=== PATIENT | male | born 1950 | race Caucasian/White ===

== ENCOUNTER 2016-06-25 11:30 | Observation (INO) | payer SELFPAY ==
[2016-06-25 12:06] LABS: Hematocrit 44 % (42-52); Hemoglobin 14.5 g/dl (14.0-18.0); Mean Corpuscular HGB Conc 33 g/dl (31-36); Mean Corpuscular Hemoglobin 29 pg (27-31); Mean Corpuscular Volume 88 fL (80-94); Mean Platelet Volume 8 um3 (7.4-10.4); Red Blood Count 4.95 10^6/ul (4.0-5.4); Red Cell Distribution Width 13 % (10.5-15)
--- NOTE | 2016-06-25 12:19 | RAD ---
Indication: Neurologic changes, dizziness with difficulty speaking. CT of the brain was performed without IV contrast. No prior study is available for comparison. Ventricular structures are midline. No midline shift is noted. The extra-axial spaces are unremarkable. There is no evidence of intracranial mass or hemorrhage. No other high or low density lesions are identified. Mastoid air cells and paranasal sinuses are otherwise unremarkable. IMPRESSION: No definite intracranial mass or hemorrhage is noted. Findings were called to the ER at 12:15 PM.
[2016-06-25 12:22] LABS: ALT 17 U/L (7-52); AST 14 U/L (13-39); Albumin 4.5 g/dL (3.2-5.2); Alkaline Phosphatase 54 U/L (34-104); Anion Gap 8 mmol/L (2-11); BUN/Creatinine Ratio 14.7 (8-20); Blood Urea Nitrogen 22 mg/dL (6-24); CO2 Carbon Dioxide 26 mmol/L (22-32); Calcium 9.4 mg/dL (8.6-10.3); Chloride 102 mmol/L (101-111); Cholesterol 160 mg/dL; EGFR African American 60.8 (>60); EGFR Non-African American 47.3 (>60); Globulin 2.7 g/dL (2-4); Glucose 112 mg/dL (70-100); HDL Cholesterol 37.3 mg/dL; LDL Cholesterol 100 mg/dL; Sodium 136 mmol/L (133-145); Total Protein 7.2 g/dL (6.4-8.9); Triglycerides 115 mg/dL
[2016-06-25] MEDS ORDERED: Iodixanol* (CONTRAST) 320 MG/ML 100 ML SDV IV ONE (12:27)
--- NOTE | 2016-06-25 12:32 | RAD ---
INDICATION: Aphasia COMPARISON: Chest x-ray October 03, 2003 TECHNIQUE: An AP portable view obtained at 1203 hours is submitted. FINDINGS: Bones/Soft Tissues: There are no acute bony findings. Cardiomediastinal: The cardiomediastinal silhouette is normal. Lungs: There are no infiltrates. Pleura: There are no pleural effusions. Other: None IMPRESSION: NO ACTIVE DISEASE.
[2016-06-25] MEDS ORDERED: Aspirin TAB* 325 MG PO ONE (13:32)
--- NOTE | 2016-06-25 13:41 | RAD ---
INDICATION: Aphasia COMPARISON: Noncontrast CT brain same date TECHNIQUE: Axial source images were acquired with coronal and sagittal reconstructions. CT angiographic technique was utilized with injection of 80 mL Visipaque 320. FINDINGS: Aortic arch: There are no CT angiogram abnormalities of the arch or the great vessels arising from the arch. Right carotid: The internal carotid artery, carotid bifurcation, extracranial portions of the internal carotid artery, carotid artery at the skull base, carotid siphon, and carotid termination appear normal. Left carotid:The internal carotid artery, carotid bifurcation, extracranial portions of the internal carotid artery, carotid artery at the skull base, carotid siphon, and carotid termination appear normal. Right middle and anterior cerebral arteries: There are no CT angiographic abnormalities of the middle or anterior cerebral arteries. Left middle and anterior cerebral arteries: There are no CT angiographic abnormalities of the middle or anterior cerebral arteries Right vertebral: The CT angiographic appearance of the vertebral artery is normal. Left vertebral: The CT angiographic appearance of the vertebral artery is widely patent. There is no anatomic variant with the vertebral artery originating from the aortic arch. Basilar artery: The basilar artery and basilar tip appear normal. Posterior cerebral arteries: The distal distribution of the right and left posterior cerebral arteries is normal. [place] of [place]: The [place] is intact. There are variants. The posterior cerebral arteries are hypoplastic. The right A1 segment is hypoplastic. The distal distribution of the right anterior cerebral artery is supplied by the left middle cerebral artery. Source images show no evidence of mass or adenopathy within the neck. There are no focal parenchymal abnormalities or abnormal areas of enhancement. IMPRESSION: NO ACUTE CT ANGIOGRAPHIC ABNORMALITIES.. NO ANEURYSM, STENOSIS, BRANCH OCCLUSIVE DISEASE. SUGGEST MR IMAGING. CPT II Codes: 3100F PQRS
[2016-06-25] MEDS ORDERED: hydrALAZINE IV* 20 MG/ML VIAL IV SLOW PU PRN (13:42)
[2016-06-25] MEDS ORDERED: Acetaminophen TAB* 325 MG PO PRN (13:42)
[2016-06-25] MEDS ORDERED: Ondansetron INJ* 2 MG/ML VIAL IV PRN (13:42)
[2016-06-25] MEDS ORDERED: NS 0.9% 1000 ML* 1,000 ML IV SCH (13:45)
--- NOTE | 2016-06-25 15:56 | ED ---
Jerad, DoctorStephanie, scribed for Darwin Ortiz MD on 06/25/16 at 1206 . Neurological HPI - HPI Summary HPI Summary: 65 year old male arrived to [facility] c/o changes to his speech at 11:00 this morning, as well as ongoing dizziness and weakness for the past few weeks. His dizziness/weakness was exacerbated this morning at 09:00; he describes feeling "off-balance and slightly removed," as well as being unable to "find the right words." His symptoms have now resolved spontaneously. He denies any facial changes, unilateral weakness, or difficulty understanding others. He has a PMHx of Gout (for which he takes Indomethacin); he regularly sees Dr. Kidd (PCP) - History of Current Complaint Chief Complaint: EDNeurologicalDeficit Stated Complaint: TROUBLE SPEAKING Time Seen by Provider: 06/25/16 11:40 Hx Obtained From: Patient Onset/Duration: Gradual Onset Timing: Constant Onset Severity: Moderate Current Severity: Moderate Pain Intensity: 3 Pain Scale Used: 0-10 Numeric Character: Dizzy Alleviating: Spontanious Resolution Associated Signs and Symptoms: Positive: Dizziness, Impaired Speech - Allergy/Home Medications Allergies/Adverse Reactions: Allergies Allergy/AdvReac Type Severity Reaction Status Date / Time No Known Allergies Allergy Verified 02/10/15 10:41 Home Medications: Home Medications Indomethacin CAP* [Indocin CAP*] 25 mg PO TID PRN 06/25/16 [History Confirmed ] Omeprazole [Omeprazole 40 MG] 40 mg PO DAILY 06/25/16 [History Confirmed ] Simvastatin [Simvastatin] 40 mg PO DAILY 06/25/16 [History Confirmed 06/25/16] Tadalafil [Cialis] 5 mg PO DAILY 06/25/16 [History Confirmed 06/25/16] PMH/Surg Hx/FS Hx/Imm Hx Endocrine/Hematology History: Denies: Hx Diabetes, Hx Thyroid Disease Cardiovascular History: Denies: Hx Hypertension, Hx Pacemaker/ICD Respiratory History: Denies: Hx Asthma, Hx Chronic Obstructive Pulmonary Disease (COPD) GI History: Denies: Hx Ulcer History: Denies: Hx Renal Disease - POSSIBLE STAGE 2 KIDNEY DISEASE Sensory History: Denies: Hx Hearing Aid Psychiatric History: Denies: Hx Panic Disorder - Surgical History Surgery Procedure, Year, and Place: Rt leg reconstruction;Lt ACL repair Infectious Disease History: No Infectious Disease History: Denies: Hx Clostridium Difficile, Hx Hepatitis, Hx Human Immunodeficiency Virus (HIV), History Other Infectious Disease, Traveled Outside the [place] in Last 30 Days - Family History Known Family History: Positive: Renal Disease - Social History Alcohol Use: Occasionally Substance Use Type: Reports: None Smoking Status (MU): Former Smoker Type: Cigars Review of Systems Negative: Fever Neurological: Other - "words weren't making sense," "difficulty coming up with the right words" All Other Systems Reviewed And Are Negative: Yes Physical Exam Triage Information Reviewed: Yes Vital Signs On Initial Exam: Initial Vitals Temp Pulse Resp BP Pulse Ox 98.2 F 70 18 171/112 100 06/25/16 11:32 06/25/16 11:32 06/25/16 11:32 06/25/16 11:32 06/25/16 11:32 Vital Signs Reviewed: Yes Appearance: Positive: Well-Appearing, No Pain Distress Skin: Positive: Warm, Skin Color Reflects Adequate Perfusion, Dry Head/Face: Positive: Normal Head/Face Inspection Eyes: Positive: Normal ENT: Positive: Normal ENT inspection Neck: Positive: Supple, Nontender Respiratory/Lung Sounds: Positive: Clear to Auscultation, Breath Sounds Present Cardiovascular: Negative: Pulses are Symmetrical in both Upper and Lower Extremities - Decreased Right Carotid Pulse, Strong Left Carotid Pulse, Murmur Abdomen Description: Positive: Nontender, Soft Bowel Sounds: Positive: Present Musculoskeletal: Positive: Normal Neurological: Positive: Normal Psychiatric: Positive: Normal, Affect/Mood Appropriate Diagnostics - Vital Signs Vital Signs Temp Pulse Resp BP Pulse Ox 06/25/16 11:32 98.2 F 70 18 171/112 100 - Laboratory Lab Results: Lab Results 06/25/16 06/25/16 06/25/16 Range/Units 11:55 11:55 11:55 WBC 7.0 (3.5-10.8) 10^3/ul RBC 4.95 (4.0-5.4) 10^6/ul Hgb 14.5 (14.0-18.0) g/dl Hct 44 (42-52) % MCV 88 (80-94) fL MCH 29 (27-31) pg MCHC 33 (31-36) g/dl RDW 13 (10.5-15) % Plt Count 180 (150-450) 10^3/ul MPV 8 (7.4-10.4) um3 Neut % (Auto) 70.0 (38-83) % Lymph % (Auto) 22.4 L (25-47) % Beckham % (Auto) 6.3 (1-9) % Eos % (Auto) 0.8 (0-6) % Baso % (Auto) 0.5 (0-2) % Absolute Neuts (auto) 4.9 (1.5-7.7) 10^3/ul Absolute Lymphs (auto) 1.6 (1.0-4.8) 10^3/ul Absolute Monos (auto) 0.4 (0-0.8) 10^3/ul Absolute Eos (auto) 0.1 (0-0.6) 10^3/ul Absolute Basos (auto) 0 (0-0.2) 10^3/ul Absolute Nucleated RBC 0.01 10^3/ul Nucleated RBC % 0.1 INR (Anticoag Therapy) 0.95 (0.89-1.11) APTT 28.5 (26.0-36.3) seconds Sodium 136 (133-145) mmol/L Potassium 4.0 (3.5-5.0) mmol/L Chloride 102 (101-111) mmol/L Carbon Dioxide 26 (22-32) mmol/L Anion Gap 8 (2-11) mmol/L BUN 22 (6-24) mg/dL Creatinine 1.50 H (0.67-1.17) mg/dL Est GFR ( Amer) 60.8 (>60) Est GFR (Non-Af Amer) 47.3 (>60) BUN/Creatinine Ratio 14.7 (8-20) Glucose 112 H (70-100) mg/dL Lactic Acid (0.5-2.0) mmol/L Calcium 9.4 (8.6-10.3) mg/dL Total Bilirubin 0.50 (0.2-1.0) mg/dL AST 14 (13-39) U/L ALT 17 (7-52) U/L Alkaline Phosphatase 54 (34-104) U/L Troponin I 0.00 (<0.04) ng/mL Total Protein 7.2 (6.4-8.9) g/dL Albumin 4.5 (3.2-5.2) g/dL Globulin 2.7 (2-4) g/dL Albumin/Globulin Ratio 1.7 (1-3) Triglycerides 115 mg/dL Cholesterol 160 mg/dL LDL Cholesterol 100 mg/dL HDL Cholesterol 37.3 mg/dL 06/25/16 Range/Units 11:55 WBC (3.5-10.8) 10^3/ul RBC (4.0-5.4) 10^6/ul Hgb (14.0-18.0) g/dl Hct (42-52) % MCV (80-94) fL MCH (27-31) pg MCHC (31-36) g/dl RDW (10.5-15) % Plt Count (150-450) 10^3/ul MPV (7.4-10.4) um3 Neut % (Auto) (38-83) % Lymph % (Auto) (25-47) % Beckham % (Auto) (1-9) % Eos % (Auto) (0-6) % Baso % (Auto) (0-2) % Absolute Neuts (auto) (1.5-7.7) 10^3/ul Absolute Lymphs (auto) (1.0-4.8) 10^3/ul Absolute Monos (auto) (0-0.8) 10^3/ul Absolute Eos (auto) (0-0.6) 10^3/ul Absolute Basos (auto) (0-0.2) 10^3/ul Absolute Nucleated RBC 10^3/ul Nucleated RBC % INR (Anticoag Therapy) (0.89-1.11) APTT (26.0-36.3) seconds Sodium (133-145) mmol/L Potassium (3.5-5.0) mmol/L Chloride (101-111) mmol/L Carbon Dioxide (22-32) mmol/L Anion Gap (2-11) mmol/L BUN (6-24) mg/dL Creatinine (0.67-1.17) mg/dL Est GFR ( Amer) (>60) Est GFR (Non-Af Amer) (>60) BUN/Creatinine Ratio (8-20) Glucose (70-100) mg/dL Lactic Acid 1.1 (0.5-2.0) mmol/L Calcium (8.6-10.3) mg/dL Total Bilirubin (0.2-1.0) mg/dL AST (13-39) U/L ALT (7-52) U/L Alkaline Phosphatase (34-104) U/L Troponin I (<0.04) ng/mL Total Protein (6.4-8.9) g/dL Albumin (3.2-5.2) g/dL Globulin (2-4) g/dL Albumin/Globulin Ratio (1-3) Triglycerides mg/dL Cholesterol mg/dL LDL Cholesterol mg/dL HDL Cholesterol mg/dL Result Diagrams: 06/25/16 11:55 06/25/16 11:55 Lab Statement: Any lab studies that have been ordered have been reviewed, and results considered in the medical decision making process. - Radiology CXR Radiology Interpretation Completed By: Radiologist - IMPRESSION: NO ACTIVE DISEASE. - CT Brain CT CT Interpretation Completed By: Radiologist - IMPRESSION: No definite intracranial mass or hemorrhage is noted. Findings were called to the ER at 12: [address] Interpretation Completed By: Radiologist - IMPRESSION: NO ACUTE CT ANGIOGRAPHIC ABNORMALITIES.. NO ANEURYSM, STENOSIS, BRANCH OCCLUSIVE DISEASE. SUGGEST MR IMAGING. - EKG 13:34 Cardiac Rate: NL - 79 BPM EKG Rhythm: Sinus Rhythm Ectopy: None EKG Interpretation: Normal, Non-Specific Changes - Additional Comments Diagnostic Additional Comments: Troponin I - 0.00 NIH Scale - NIH Scale Level of Consciousness: Alert/Keenly Responsive Ask Patient the Month and His/Her Age: Both Correct Ask Pt to Open/Close Eyes and Fabric Cutter/Release Non-Paretic Hand: Both Correctly Best Gaze (Only Horizontal Eye Movement): Normal Visual Field Testing: No Visual Loss Facial Paresis-Pt to Smile & Close Eyes or Grimace Symmetry: Normal/Symmetrical Motor Function - Right Arm: No Drift-Holds 10 Seconds Motor Function - Left Arm: No Drift-Holds 10 Seconds Motor Function - Right Leg: No Drift-Holds 10 Seconds Motor Function - Left Leg: No Drift-Holds 10 Seconds Limb Ataxia-Must be out of Proportion to Weakness Present: Absent Sensory (Use Pinprick to Test Arms/Legs/Trunk/Face): Normal Best Language (Describe Picture, Name Items): No Aphasia Dysarthria (Read Several Words): Normal Extinction and Inattention: No Abnormality Total Score: 0 Course/Dx - Course Course Of Treatment: 12:00 - spoke with Dr. Garcia (Neurologist). Will come see patient for further evaluation. - Diagnoses Provider Diagnoses: TIA (transient ischemic attack) Discharge - Discharge Plan Condition: Stable Disposition: ADMITTED TO [facility] documentation as recorded by the Doctor carolina Tahera accurately reflects the service I personally performed and the decisions made by me, Darwin Ortiz MD.
[2016-06-25 16:08] LABS: Urine Bilirubin Negative (Negative); Urine Glucose Negative (Negative); Urine Nitrite Negative (Negative)
--- NOTE | 2016-06-25 16:27 | ECHO ---
Patient: TENZIN SAGE [facility] Rec#: [id number] : 1950 Date: 06/25/2016 Age: 65y Height: 175.26 cm / 69.0 in Weight: 76.66 kg / 169.0 lbs Sex: M BSA: 1.92 Room#: -17 Admit Date#: 06/25/2016 Type: Inpatient Referring: Reinaldo Dutton NP Reading: Casey Hollis MD English Instructor: Caryn Curran 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 Technical Comments: The study is technically limited due to poor acoustic windows. Completed at 1550. Left Ventricle: The left ventricular chamber size is decreased. Mild concentric left ventricular hypertrophy is observed. Global left ventricular wall motion and contractility are within normal limits. There is normal left ventricular systolic function. The estimated ejection fraction is 55-60%. Abnormal left ventricular diastolic filling is observed, consistent with impaired relaxation. Left Atrium: The left atrial chamber size is normal. Right Ventricle: The right ventricular cavity size is normal. The right ventricular global systolic function is normal. Right Atrium: The right atrial cavity size is normal. Interatrial septum appears intact without evidence of shunting. A patent foramen ovale is not demonstrated with color Doppler and agitated contrast. Aortic Valve: The aortic valve is trileaflet. The aortic valve leaflets are mildly thickened. There is no evidence of aortic regurgitation. There is no evidence of aortic stenosis. Mitral Valve: The mitral valve leaflets are mildly thickened. There is a trace of mitral regurgitation. Tricuspid Valve: The tricuspid valve leaflets are normal. There is a physiologic tricuspid regurgitation. Unable to estimate the right ventricular systolic pressure. Pulmonic Valve: The pulmonic valve appears normal. There is no evidence of pulmonic regurgitation. There is no pulmonic stenosis. Pericardium: There is no significant pericardial effusion. Aorta: There is no dilatation of the ascending aorta. There is no dilatation of the aortic arch. There is no dilation of the aortic root. Pulmonary Artery: The main pulmonary artery is not well visualized. Venous: The venous system is not well visualized. Contrast: Normal saline was used as contrast for the bubble study. Intravenous contrast was used to help determine presence of intracardiac shunting. Conclusions There is normal left ventricular systolic function. The estimated ejection fraction is 55-60%. Global left ventricular wall motion and contractility are within normal limits. The left ventricular chamber size is decreased. Mild concentric left ventricular hypertrophy is observed. Abnormal left ventricular diastolic filling is observed, consistent with impaired relaxation. Functionally benign heart valves. A patent foramen ovale is not demonstrated with color Doppler and agitated contrast. There is no prior echocardiogram available to compare with at this time. Measurements Name Value Normal Range RVIDd (AP) 2D 2.6 cm (0.9 - 2.6) RVDdMajor (2D) 2.6 cm (2.2 - 4.4) RAd ISD 4CH 4.4 cm (3.4 - 4.9) RA (A4C)W 3.4 cm (2.9 - 4.6) IVSd (2D) 1.3 cm (0.6 - 1) LVPWd (2D) 1 cm (0.6 - 1) LVIDd (2D) 3.4 cm (3.6 - 5.4) LVIDs (2D) 2.4 cm - LV FS (2D) 29 % (25 - 45) Aortic Annulus 2.2 cm (1.4 - 2.6) Ao root diameter (2D) 3.1 cm (2.1 - 3.5) Ascending Ao 3.4 cm (2.1 - 3.4) Aortic arch 2.8 cm (1.8 - 3.4) LA dimension (AP) 2D 3.4 cm (2.3 - 3.8) LAd ISD 4CH 4.8 cm (2.9 - 5.3) LA ISD 4CH W 3.7 cm (2.5 - 4.5) Name Value Normal Range LA ESV SP 4CH (A/L) 26 ml - LA ESV SP 2CH (A/L) 48 ml - LA ESV BP (A/L) 36 ml - LA ESV BP (A/L) index 18.9 ml/m2 - LA ESV SP 4CH (MOD) 23 ml - LA ESV SP 2CH (MOD) 44 ml - Name Value Normal Range MV E-wave Vmax 0.7 m/sec - MV deceleration time 284 msec - MV A-wave Vmax 0.79 m/sec - MV E:A ratio 0.86 ratio - LV septal e' Vmax 0.07 m/sec - LV lateral e' Vmax 0.11 m/sec - LV E:e' septal ratio 10 ratio - LV E:e' lateral ratio 6.36 ratio - Name Value Normal Range AV Vmax 1.4 m/sec - AV VTI 29.2 cm - AV peak gradient 8.03 mmHg - AV mean gradient 4.88 mmHg - LVOT Vmax 1.37 m/sec - LVOT VTI 26.4 cm - LVOT peak gradient 7.46 mmHg - LVOT mean gradient 3.81 mmHg - Name Value Normal Range PV Vmax 0.8 m/sec - PV peak gradient 2.73 mmHg -
[2016-06-25] MEDS: Heparin VIAL(*) 5000 UNITS/ML VIAL (FIVE THOUSAND) SUBCUT SCH ×2 (16:33→21:30)
[2016-06-25 17:12] LABS: Uric Acid < 1.5 mg/dL (4.4-7.6)
--- NOTE | 2016-06-25 20:41 | CONS ---
NEUROLOGY CONSULTATION: DATE OF CONSULT: 06/25/16 REFERRING PROVIDER: Darwin Ortiz MD LOCATION: He is in the emergency room. CHIEF COMPLAINT: Difficulty coming up with words, dizziness. 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 The wrong words would come out and he has struggled to produce the words. After less than a minute, he decided to cancel the meeting. The difficulty coming up with words lasted less than a minute. He felt somewhat dizzy and that has been a recurrent problem now for several weeks. He presented to the emergency room. The difficulty coming up with words did not recur and he had no other symptoms. He had a CT scan of the brain on presentation to the emergency room which I reviewed and which looks normal. It was interrupted by Dr. Whyte as normal as well. He was hypertensive at presentation to the emergency room with blood pressure over 170/112. He has had hypertension in the past, but is not on any antihypertensive medications. It is my understanding that he is felt to have hypertensive kidney disease as well. He has not had problems with headaches or change in vision. Other than the word finding problems, he has not been confused. For a couple to a few weeks, he has felt episodically dizzy. He feels somewhat faint and weak and he will have to sit down. He has not had any falls or episodes of loss of consciousness. He has not experienced true vertigo. PAST MEDICAL HISTORY: Notable for declining renal function presumably because of hypertensive renal disease. MEDICATIONS: At home consist of: 1. Simvastatin. 2. Omeprazole. 3. Krill oil. 4. Cialis p.r.n. ALLERGIES: According to computer records, he does not have any drug allergies. REVIEW OF SYSTEMS: Negative for falls or headaches. No numbness in the limbs. No shortness of breath or palpitations. He does occasionally get a sharp chest pain in the left anterior chest, which is brief. PHYSICAL EXAM: He is well-nourished and well-hydrated. Temperature 98.2 temporally, blood pressure 171/112, heart rate 70 and regular, respiratory rate 18, oxygen saturation 100% on room air. Heart rate is in a regular rate rhythm without murmurs heard. Carotid pulses are present and there are no cervical bruits. Neurological exam, pupils, fundi, and eye movements are normal. There is no ptosis. Visual chiang are full to confrontation. Facial musculature is intact and symmetric. Facial sensation to temperature and light touch is intact. Speech is clear. Hearing is intact. Motor exam reveals normal muscle tone and strength proximally and distally. There is no pronator drift. Sensory exam to light touch, vibration, and pin is intact in all 4 extremities. Finger taps are normal in the hands. Oxdrrk-up-crpx maneuver is normal bilaterally. Nlpl-fg-[id number] maneuver is normal. Reflexes are intact and symmetric. Plantar responses are flexor. I did not attempt to ambulate him. Language is intact. Confrontation, naming, word list generation is normal. Memory is excellent. He has good attention, concentration, and fund of knowledge. DIAGNOSTIC STUDIES/LAB DATA: Additional laboratory data includes a CT angiogram of the brain, which I reviewed which the report is pending. There is no evidence of significant extracranial carotid stenosis. Other laboratory data notable for a normal CBC, coags are normal with INR 0.95 and PTT 28.5. Chemistry is notable for a creatinine of 1.5 with the last creatinine at being 1.37. First troponin is 0 and chemistries are otherwise unremarkable. His cholesterol from today is 160, LDL 100. IMPRESSION: Possible transient ischemic attack. He also has significant hypertension and a rise in creatinine. We will await the official reading on the CT angiogram, but he does not look to have a severe carotid disease, so there does not appear to be the etiology of his symptoms. An MRI of the brain is pending and he should be admitted overnight, monitored on telemetry. Recommended echocardiogram as well. Spoken with Dr. Ortiz earlier and recommend that he be given 1 aspirin per day. I would allow permissive hypertension for now. Would have fairly low level to treat given his rising creatinine. I would recommend cut offs for systolic at 180 and diastolic for 105. I will follow him with you. CC: Dr. Joseph Hahn * [id number]/[facility] #: [id number] MTDD
--- NOTE | 2016-06-25 20:49 | HP ---
HISTORY AND PHYSICAL:* ADDENDUM: Mr. Smallwood is a 65-year-old male with history of chronic kidney disease and hypertension, who apparently does not take any medications for his high blood pressure. Today, at around 11 a.m., he had breath episodes of trouble finding words. He came to be evaluated in the ED. By that time, his neuro symptoms resolved, but his systolic pressures were in the 180s. He is going to be placed on overnight observation. Dr. Garcia saw the patient in consultation. For further details of the patient's presentation and plan, please see history and physical dictated by Reinaldo Dutton NP, on 06/25/16, with which I agree. [id number]/[facility] #: [id number] MIQUEL
--- NOTE | 2016-06-25 20:57 | HP ---
ATTENDING PHYSICIAN ADDENDUM INCLUDED ON THIS REPORT HISTORY AND PHYSICAL: DATE OF ADMISSION: 06/25/16 PRIMARY CARE PROVIDER: Dr. Kidd. ATTENDING PHYSICIAN WHILE IN THE HOSPITAL: Dr. Leonarda Noguera* (report dictated by Reinaldo Dutton NP). CONSULTING NEUROLOGIST: Dr. Garcia. CHIEF COMPLAINT: Difficulty with word finding. HISTORY OF PRESENT ILLNESS: Mr. Smallwood is a 65-year-old male patient. He has a history of hyperlipidemia, GERD, depression, CKD stage 2, baseline creatinine 1.4 to 1.3, history of gout, and hyperlipidemia. He comes in to the ER today stating that he was with a client this morning discussing a case with them and he developed an episode where he was saying words that were not in context and did not make sense. He was saying in the sense something about the client's cars being on the highway which was not in context to what they were talking about and he did it twice in a row. He does also lose the fact that over the last 2 weeks he has had difficulty with dizziness. He says he feels lightheaded. He says his gait at times feels unsteady with this dizziness. He says he feels lightheaded, but there is no spinning sensation of the room. He says today the episode happened twice, it lasted seconds but he was concerned. He stepped out of the meeting, talked to his son. The son called his other son who is an anesthesiologist and recommended that the patient come to the hospital. He denied having any other symptoms. He denied having any facial droop. There was no weakness to one side. He denied having any visual changes , but there was trouble with word finding. He came to the ER. He was evaluated. It was noted that his blood pressure was elevated in the 180s. In addition to this, it was noted that he had episodes of trouble with words here in the ER. So, hospitalist service was asked to evaluate along with Neurology for possible TIA versus hypertensive urgency. PAST MEDICAL HISTORY: Significant for: 1. Hyperlipidemia. 2. GERD. 3. Depression. 4. CKD stage 2. 5. Gout. PAST SURGICAL HISTORY: He has had a knee arthroscopy. HOME MEDICATIONS: According to the patient's recall include: 1. Cialis 1 tablet daily. 2. Simvastatin 1 tablet daily. 3. Omeprazole 1 tablet daily. 4. Indomethacin 1 tablet daily as needed. 5. Testosterone every other day which he just recently started. We will try to get accurate med list as possible from the primary. ALLERGIES TO MEDICATIONS: Include no known drug allergies. FAMILY HISTORY: Mother has dementia. Father had a history of end-stage renal disease as well. SOCIAL HISTORY: He does not smoke. He rarely drinks alcohol. He has 4 children. Surrogate decision maker is his son, Fredo. 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 REVIEW OF SYSTEMS: There is no documented fever. He denied having any significant weight change. There was no double vision. He denies having any ear discharge. He denies having any rhinorrhea. No sore throat. No thyroid enlargement. Denies having any chest pain. There is no orthopnea. There is no nocturnal dyspnea. No abdominal pain. No nausea. No vomiting. No dysuria. No frequency. No loss of consciousness. No pruritus. No skin ulcerations. Review of 14 systems completed, all others negative. PHYSICAL EXAMINATION GENERAL: At this time, Mr. Smallwood is a 65-year-old male patient. He appears well nourished, well developed. He does not appear to be in any acute distress. VITAL SIGNS: Blood pressure initially 171/112 with a pulse of 70, respirations 18, O2 sat of 100%, and temperature 98.2. The blood pressure now is 150/70. HEENT: Head atraumatic and normocephalic. Eyes: EOMs are intact. Sclerae anicteric and not pale. Throat: Oral mucosa appears to be moist. No oropharyngeal erythema. NECK: Supple. LUNGS: Clear to auscultation bilaterally. No wheezes, rales, or rhonchi. HEART: Sounds S1, S2. Regular rate and rhythm. No murmurs, rubs, or gallops. ABDOMEN: Soft, flat, and nontender. Bowel sounds present. EXTREMITIES: Pulses 2+ throughout. He is able to move all 4 extremities with 5 /5 strength. NEUROLOGIC: The patient is awake, he is alert, and he is oriented x3. His speech is clear. His tongue is midline. His credentialing manager are equal. [id number]-ws-[id number] intact bilaterally. Dnor-ve-mvgc intact bilaterally. He had no pronator drift. Tongue was midline. There was no facial drooping. Cranial nerves II through XII are intact. No gross focal deficits. SKIN: Intact. LABORATORY DATA AND DIAGNOSTIC STUDIES: Today reveal a WBC of 7.0, RBC of 4.95 , hemoglobin 14.5, hematocrit of 44, platelet count of 180. INR 0.95, PTT of 28.5. Sodium was 136, potassium 4.0, chloride 102, bicarb of 26, BUN 22, creatinine 1.5, baseline 1.4, glucose 112, lactic 1.1. Total bili 0.5, AST 14, ALT 17, alk phos 54. Troponin 0. Albumin 4.5. His LDH was 100. Triglycerides were 115. He had a head CTA of his brain obtained today which showed no acute CT angiographic abnormalities. No aneurysm, stenosis, branch occlusive disease, suggest MR imaging. He had a chest x-ray obtained today which when I reviewed initially did not appreciate any infiltrates or effusions. Radiology read it as no acute disease. He had a brain CT obtained today as well which revealed no definite intracranial mass or hemorrhage is noted. He had an EKG obtained which showed a normal sinus rhythm with a rate of 79. No ST elevations were noted or T-wave inversion. It was reviewed to the previous EKG, appeared to be similar. Old medical records were reviewed. ASSESSMENT AND PLAN: Mr. Smallwood is a 65-year-old male patient coming in today to the ER with complaints of word-finding difficulty who was evaluated in the ER. Eduardo nieto was called. Symptoms resolved. Hospitalist service was asked to evaluate. He will be admitted on observation status for: 1. Transient ischemic attack verus hypertensive urgency: When he came in, his blood pressures were in the 170s which certainly may be contributing to his neurological findings, the symptoms are now resolved. However, there is concern for transient ischemic attack. Initial 24 hours, I am going to allow for permissive hypertension. I am only going to treat his blood pressure if his systolic is over 180 or diastolic is over 105. He most likely will need to go home on some type of antihypertensive when he is discharged. At this point, though I will give him an aspirin, start him on a baby aspirin. We will check lipids, A1c again in the morning when he is fasting. CTA has been done, it is normal. MRI is pending. We will get an echo. Place him on telemetry and frequent neuro checks and Dr. Garcia is evaluating. He will continue to monitor closely. Obviously because of these recent symptoms, he will need to stop his Cialis. He also need to stop his daily testosterone. We will need to figure out what testosterone he is taking, but those should be stopped. 2. Chronic kidney disease: His creatinine is little worse today at 1.5. I am going to get a FENa. We will bladder scan him. I am going to hydrate him because of the recent dye load. He will need to follow up with closely with Dr. Hahn and again, the creatinine may be the result of the hypertensive disease. Also, we need to treat this. I would think starting him on either an DONNIE inhibitor or possibly calcium channel igor such as neurovascularly would be appropriate, but we could touch base with Dr. Hahn to figure out what he elect to start but for the first 24 hours, just treating him, I am allowing for permissive hypertensive in the setting of these neurological findings. 3. Gout: Continue meds as prescribed. I would recommend switching away from indomethacin if possible because of the kidney disease. He can follow up with his primary. 4. Depression: Continue supportive care. 5. Gastroesophageal reflux disease: Continue meds as prescribed. 6. Hyperlipidemia: He is on a statin therapy. 7. DVT prophylaxis: He is going to be placed on heparin subcu. 8. Code status: Full code. 9. Fluids, electrolytes, and nutrition: He can have a regular diet. TIME SPENT: Time spent on the admission was approximately 70 minutes; greater than half the time was spent [id number] with the patient obtaining my history and physical, other half the time spent going over the plan of care with the patient and implementing plan of care. I did discuss the plan of care with my attending, Dr. Noguera; she is in agreement. REINALDO DUTTON NP ADDENDUM: Mr. Smallwood is a 65-year-old male with history of chronic kidney disease and hypertension, who apparently does not take any medications for his high blood pressure. Today, at around 11 a.m., he had breath episodes of trouble finding words. He came to be evaluated in the ED. By that time, his neuro symptoms resolved, but his systolic pressures were in the 180s. He is going to be placed on overnight observation. Dr. Garcia saw the patient in consultation. For further details of the patient's presentation and plan, please see history and physical dictated by Reinaldo Dutton NP, on 06/25/16, with which I agree. LEONARDA NOGUERA MD CC: Dr. Kidd; Dr. Garcia* [id number]/[facility] #: [id number]/CPS #: [id number] MIQUEL
--- NOTE | 2016-06-25 21:26 | RAD ---
Indication: Dizziness for 2 weeks. Difficulty with word finding. Comparison: June 25, [address] angiogram Technique: [place] 1.5 Yuliya [id number] with GEM suite. MRI brain without contrast. Report: Diffusion series is negative for acute or subacute ischemia. Susceptibility series is negative for stigmata of hemosiderin deposition to indicate previous hemorrhage. Unremarkable cerebral sulci, ventricles, and basal cisterns. Normal patterns of signal intensity throughout the cerebrum and posterior fossa. No suspicious intra-axial or extra-axial lesions or fluid collections. Unremarkable orbital contents. Preserved major intracranial flow-voids. No calvarial or skull base lesion evident. Small mucous retention cyst or polyp at the floor of the LEFT maxillary sinus. Negative for paranasal sinus fluid levels. Clear mastoid air spaces. IMPRESSION: Negative unenhanced MRI of the brain.
[2016-06-25] MEDS ORDERED: diPHENhydraMINE PO* 50 MG PO PRN (21:43)
[2016-06-26] MEDS: Heparin VIAL(*) 5000 UNITS/ML VIAL (FIVE THOUSAND) SUBCUT SCH ×2 (05:54→14:03)
[2016-06-26 06:03] LABS: Hematocrit 40 % (42-52); Hemoglobin 13.3 g/dl (14.0-18.0); Mean Corpuscular HGB Conc 34 g/dl (31-36); Mean Corpuscular Hemoglobin 30 pg (27-31); Mean Corpuscular Volume 88 fL (80-94); Mean Platelet Volume 8 um3 (7.4-10.4); Red Blood Count 4.49 10^6/ul (4.0-5.4); Red Cell Distribution Width 13 % (10.5-15); White Blood Count 6.4 10^3/ul (3.5-10.8)
[2016-06-26 06:21] LABS: BUN/Creatinine Ratio 16.3 (8-20); Calcium 8.7 mg/dL (8.6-10.3); EGFR African American 59.4 (>60); EGFR Non-African American 46.2 (>60); HDL Cholesterol 29.9 mg/dL; Potassium 4.4 mmol/L (3.5-5.0)
--- NOTE | 2016-06-26 07:02 | PN ---
Progress Note - Progress Note SOAP: 06/26/16 neurology follow up note 65 year old with ? baseline HTN (notes suggests yes; he says SBP usually 110s at home and in PMD office), HL, CKD, presenting yesterday with transient resolved episode of isolated language dysfunction and confusion, in which he said several grammatically correct and understandable, but not germane to the conversation phrases, then adjourned a work meeting. He also notes episodic more subacute mild dizziness vs disequilibrium concerns. He was seen in consultation by Dr Garcia and had a normal neuro exam. There were no overnight events. He is anti platelet bernard at baseline and was started on a baby ASA on admission. His neuro exam remains non localizing today LDL 90, Cr 1.5 and stable CTA head and neck negative; TTE negative including bubble study; MRI brain reviewed and negative Imp/plan: 65 year old with several vascular risk factors, including ? HTN and CKD, presenting with resolved episode of ? word finding difficulty vs confusion, and subacute nonspecific dizziness. The concern, well summarized in the admission records and neuro consult by my colleague, were for possible TIA vs HTN urgency. The DBAS vascular workup is complete and negative; I concur with ASA use and statin titration, as well as watermaster BP control if elevated in an outpatient setting. From a neuro standpoint he can be discharged home.
[2016-06-26] MEDS ORDERED: Omeprazole CAP* 20 MG PO SCH (09:00)
[2016-06-26] MEDS ORDERED: Atorvastatin* 20 MG TAB PO SCH (09:00)
[2016-06-26] MEDS ORDERED: Aspirin Low Dose CHEW TAB* 81 MG PO SCH (09:00)
[2016-06-26] MEDS ORDERED: Allopurinol TAB* 100 MG PO SCH (09:00)
[2016-06-26 11:37] VITALS: BP 123/87
--- NOTE | 2016-06-27 02:45 | DS ---
DISCHARGE SUMMARY: DATE OF ADMISSION: 06/25/16 DATE OF DISCHARGE: 06/26/16 PRIMARY CARE PROVIDER: Dr. Kidd. PRIMARY DIAGNOSIS: Transient ischemic attack. SECONDARY DIAGNOSES: Include: 1. Chronic kidney disease. 2. Hyperlipidemia. 3. Gastroesophageal reflux disease. 4. Depression. 5. Gout. 6. Erectile dysfunction. MEDICATIONS ON DISCHARGE: Include: 1. Cialis 5 mg daily as needed. 2. Simvastatin 40 mg daily. 3. Omeprazole 40 mg daily. 4. Aspirin 81 mg daily. NEW MEDICATIONS: Allopurinol 100 mg daily. Additionally the discontinuation of indomethacin secondary to CKD. PERTINENT LABORATORY DATA: During the course of hospital stay, creatinine on presentation and discharge 1.50. Hemoglobin A1c 6.0. Total cholesterol 151, LDL 90, HDL 29, triglycerides of 157. PERTINENT IMAGING PERFORMED DURING HOSPITAL STAY: 1. Brain MRI. Impression: Negative for unenhanced MRI of the brain. 2. Head CTA. Impression: No acute CT angiographic abnormalities. No aneurysm , stenosis, branch occlusive disease. 3. Transthoracic echocardiogram. Impression: Normal left ventricular systolic function with estimated LVEF 55% to 60%. Global left ventricular wall motion and contractility are within normal limits. The left ventricular chamber size has decreased. Mild concentric left ventricular hypertrophy. Abnormal left ventricular diastolic filling consistent with impaired relaxation. Functionally, benign heart valves. No patent foramen ovale demonstrated with color Doppler and agitated contrast. CONSULTATIONS OBTAINED DURING HOSPITAL STAY: Neurology. HISTORY OF PRESENT ILLNESS AND HOSPITAL COURSE: This is a 65-year-old man, past medical history as outlined in the history of present illness on the day of admission including hyperlipidemia, GERD, depression, CKD stage 2 with a known baseline creatinine between 1.3 and 1.4, gout and hyperlipidemia, presented to the hospital with word finding difficulty, with dizziness over the preceding 2 weeks. He was seen in consultation with Neurology and there was concern for potential TIA versus hypertensive urgency. Blood pressure on presentation to the hospital was 171/112, normalized to 123/87 on the day of discharge without the administration of any medication. Aforementioned above imaging was all negative for stroke or any other occlusive disease nor patent foramen ovale. The patient's symptoms resolved. He will be discharged on aspirin 81 mg as a primary prophylaxis. Additionally, indomethacin was transitioned to allopurinol in the setting of worsening CKD from stage 2 to 3. There are no complications of this patient's hospital stay. At followup, please; 1. Evaluate for continued blood pressure control, on no medications. 2. Evaluate for continued gout control, on allopurinol, off of indomethacin. 3. Consider repeat BMP for evaluation of creatinine resolution off of nonsteroidal anti-inflammatory. 4. No other specific labs or vitals that need followup. Reasons to return to the hospital including, but not limited to recurrent or worsening symptoms including word finding difficulties, recurrent lightheadedness, changes in vision, headache, nausea, vomiting, loss of consciousness, near loss of consciousness, asymmetric weakness or paresthesias discussed with the patient. He acknowledged understanding. TIME SPENT: Greater than 45 minutes were spent on the discharge of this patient , of which greater than half was spent [id number] with the patient. CC: Dr. Kidd * [id number]/[facility] #: [id number] MIQUEL
== END 2016-06-26 15:30 | disposition home or self-care (01) ==
LOC: ED 11:30 → MEDTELE 13:37
PROVIDERS: ADMIT Internal Medicine; ATTEND Internal Medicine
DX: G45.9 Transient cerebral ischemic attack, unspecified (principal); N18.2 Chronic kidney disease, stage 2 (mild); E78.5 Hyperlipidemia, unspecified; I51.7 Cardiomegaly; K21.9 Gastro-esophageal reflux disease without esophagitis; M10.9 Gout, unspecified; F32.9 Major depressive disorder, single episode, unspecified; R94.31 Abnormal electrocardiogram [ECG] [EKG]; Z79.899 Other long term (current) drug therapy; Z79.82 Long term (current) use of aspirin
CPT/HCPCS: 36415; 70450; 70496; 70498; 70551; 71010; 80048; 80053; 80061; 81003; 82570; 83036; 83605; 84300; 84484; 84550; 85025; 85610; 85730; 93005; 93306; 96360; 96361; 96372; 99284; A9270-GY; G0378; J1644; Q9967

== ENCOUNTER 2017-11-20 17:18 | Emergency (ER) | payer BC ==
[2017-11-20] MEDS ORDERED: Tetracaine 0.5% OPTH.SOL 4 ML* 1 DROP BTL LEFT EYE ONE (17:46)
[2017-11-20] MEDS ORDERED: Fluorescein Sod TOPICAL 0.6* 0.6 MG TEST OPHTHALMIC ONE (17:47)
--- NOTE | 2017-11-20 17:51 | UC ---
Eye Complaint HPI - HPI Summary HPI Summary: This is ge [employer] documenting for attending Wandy Moreno MD. Pt is a 66 y/o M p/w possible foreign body stuck in L eye 2 hours ago. Assoc. Sx : L eye redness, pain, photophobia, increased lacrimation and discomfort. Pt notes he was cutting fiber glass on his boat with an electric saw. He started feeling discomfort in his L eye after getting in car to go home. He says he feels like he is "being stabbed in the eye" every time he blinks. PMHx: HTN, Hypercholesterolemia. - History of Current Complaint Stated Complaint: EYE INJURY Time Seen by Provider: 11/20/17 17:23 Hx Obtained From: Patient Onset/Duration: Gradual Onset, Lasting Hours, Still Present, Worse Since - getting in car to go home Timing: Constant Severity Currently: Severe Pain Scale Used: 0-10 Numeric Location of Injury: Other - L cornea Character: Foreign Body Sensation Aggravating Factor(s): Light, Blinking Alleviating Factor(s): Nothing Associated Signs And Symptoms: Positive: Photophobia, Drainage (Clear), Vision Impairment Left - Allergies/Home Medications Allergies/Adverse Reactions: Allergies Allergy/AdvReac Type Severity Reaction Status Date / Time No Known Allergies Allergy Verified 11/20/17 17:53 PMH/Surg Hx/FS Hx/Imm Hx Other Endocrine History: Negative: DM. Cardiovascular History: Hypertension, Other - Hyperlipidemia Other Cardiovascular History: negative Other Respiratory History: negative Other GI/ History: negative Other Neurological History: negative Other Psychological History: negative Other Cancer History: negative - Surgical History Surgical History: Yes Surgery Procedure, Year, and Place: Rt leg reconstruction(PIN PLACED THEN REMOVED CHILD) ;Lt ACL repair - Family History Known Family History: Positive: Renal Disease - Social History Occupation: Employed Full-time Lives: With Family Alcohol Use: Occasionally Substance Use Type: None Smoking Status (MU): Former Smoker Type: Cigars Review of Systems Constitutional: Negative - Fever Eyes: Eye Redness - L eye, Photophobia - L eye, Other - increased lacrimation, discomfort ENT: Sinus Congestion Respiratory: Negative Cardiovascular: Negative Gastrointestinal: Negative Genitourinary: Negative Motor: Negative Neurovascular: Negative Musculoskeletal: Negative Neurological: Negative Psychological: Negative Is Patient Immunocompromised?: No All Other Systems Reviewed And Are Negative: Yes Physical Exam - Summary Physical Exam Summary: Appearance: Well-Appearing, No Pain Distress, Well-Nourished Eyes: L eye conjunctival redness. and increased lacrimation. No discharge or foreign body identified. ENT: Hearing grossly normal, no muffled/hoarse voice. Neck: Normal, Supple Respiratory/Lung Sounds: Lungs clear, Normal breath sounds, No respiratory distress, No accessory muscle use Cardiovascular: RRR, No murmur Abdomen: Nontender, Soft, no guarding, not distended Bowel Sounds: Present Musculoskeletal: Normal Neurological: Alert, muscle tone normal Psychiatric:Normal, age appropriate behavior Skin: Normal, Warm, Dry, Normal color Triage Information Reviewed: Yes Vital Signs Reviewed: Yes Procedures - Eye Procedure Left Alcaine Drops Administered: Yes - tetracaine Eye FB Removal: no removal w/ cotton swab - No FB found Cyclogel 2 Drops Administered: left eye Antibiotic Ointment/Drps Admin: left eye Eye Complaint Course/Dx - Course Course Of Treatment: During his visit today, we used tetracaine eye drops to numb the area, no foreign body was found even with eversion of upper eyelid. Upon use of fluorescein stain, a round corneal abrasion was identified at 12 O' clock position. We discussed the findings and further plan. I have prescribe the medication to the pharmacy and initial antibiotic dose was given here. Topical analgesic was prescribed as well. He continued to have pain which could be from the abrasion itself of a possible fiberglass foreign body. We discussed th eoption of going to ER but he wants to hold off for now. Plan to see ophthalmology tomorrow if no better. Patient expressed understanding . - Differential Dx/Diagnosis Provider Diagnoses: corneal abrasion. Foreign body Discharge - Sign-Out/Discharge Documenting (check all that apply): Patient Departure - Discharge Plan Condition: Stable Disposition: HOME Prescriptions: Ketorolac 0.5% OPHTH (NF) 1 drop LEFT EYE QID #1 btl Polymyx/Trimethoprim OPTH* [Polytrim OPHTH*] 1 drop LEFT EYE Q3H #1 btl Patient Education Materials: Corneal Abrasion (ED), Eye Foreign Body (ED) Referrals: Remi Kidd MD [Primary Care Provider] - 7 Days Joseph Marquez MD [Medical Doctor] - 2 Days Additional Instructions: Start using eye drops. It has also been prescribed to the pharmacy . Follow up with your primary care doctor as neede Please follow up with ophthalmology in 2 days for the consult , sooner if symptoms getting worse. Return to Urgent care / ER if symptoms get worse. . - Billing Disposition and Condition Condition: STABLE Disposition: Home
[2017-11-20] MEDS ORDERED: Polymyx/Trimethoprim OPTH* 10 ML BTL LEFT EYE ONE (18:30)
[2017-11-20 18:36] VITALS: BP 147/90
[2017-11-20] MEDS ORDERED: KETOROLAC 0.4% LEFT EYE SCH (21:00)
== END 2017-11-20 18:40 | disposition home or self-care (01) ==
LOC: UCEAST 17:18
DX: T15.02XA Foreign body in cornea, left eye, initial encounter (principal); X58.XXXA Exposure to other specified factors, initial encounter; Y93.89 Activity, other specified; Y92.9 Unspecified place or not applicable; Z87.891 Personal history of nicotine dependence
CPT/HCPCS: 65220; 99202; A9270-GY; G0463

== ENCOUNTER 2017-11-21 08:11 | Emergency (ER) | payer BC ==
[2017-11-21] MEDS ORDERED: Fluorescein Sod TOPICAL 0.6* 0.6 MG TEST OPHTHALMIC ONE (08:20)
[2017-11-21] MEDS ORDERED: Tetracaine 0.5% OPTH.SOL 4 ML* 1 DROP BTL ONE (08:20)
[2017-11-21] MEDS ORDERED: oxyCODONE/Acetamin 5/325 MG* TAB PO ONE (08:27)
--- NOTE | 2017-11-21 08:29 | ED ---
Throat Pain/Nasal Congestion - HPI Summary HPI Summary: 66-year-old male presents with right abrasion and foreign body in eye. He states that he was cutting fiberglass and a piece went into the eye. He was seen at and no foreign body was seen but is corneal abrasion. He states that after left he had increasing pain. The pain is 10 out of 10. he is followed by the pain clinic. He states that he is able to see out of the eye but it is blurry and painful. The eyes were more red today. He has not followed up with optho. he has history of high blood pressure. Does not wear contacts or glasses. - History of Current Complaint Chief Complaint: EDEyeProblem Time Seen by Provider: 11/21/17 08:20 - Allergies/Home Medications Allergies/Adverse Reactions: Allergies Allergy/AdvReac Type Severity Reaction Status Date / Time No Known Allergies Allergy Verified 11/20/17 17:53 PMH/Surg Hx/FS Hx/Imm Hx Endocrine/Hematology History: Denies: Hx Diabetes, Hx Thyroid Disease Cardiovascular History: Reports: Hx Hypercholesterolemia, Hx Hypertension Denies: Hx Pacemaker/ICD Respiratory History: Denies: Hx Asthma, Hx Chronic Obstructive Pulmonary Disease (COPD) GI History: Reports: Hx Gastroesophageal Reflux Disease Denies: Hx Ulcer History: Reports: Hx Chronic Renal Failure - CKD II Denies: Hx Dialysis, Hx Renal Disease - POSSIBLE STAGE 2 KIDNEY DISEASE Musculoskeletal History: Reports: Hx Gout Sensory History: Reports: Hx Contacts or Glasses Denies: Hx Hearing Aid Opthamlomology History: Reports: Hx Contacts or Glasses Psychiatric History: Reports: Hx Panic Disorder - situational- during his divorce - Surgical History Surgery Procedure, Year, and Place: Rt leg reconstruction(PIN PLACED THEN REMOVED CHILD) ;Lt ACL repair Hx Anesthesia Reactions: No Infectious Disease History: No Infectious Disease History: Denies: Hx Clostridium Difficile, Hx Hepatitis, Hx Human Immunodeficiency Virus (HIV), History Other Infectious Disease, Traveled Outside the US in Last 30 Days - Family History Known Family History: Positive: Renal Disease - Social History Alcohol Use: Occasionally Substance Use Type: Reports: None Smoking Status (MU): Never Smoked Tobacco Type: Cigars Review of Systems Negative: Fever Positive: Drainage, Erythema Negative: Chest Pain Negative: Shortness Of Breath All Other Systems Reviewed And Are Negative: Yes Physical Exam Triage Information Reviewed: Yes Vital Signs On Initial Exam: Initial Vitals Temp Pulse Resp BP Pulse Ox 97.4 F 89 16 167/100 99 11/21/17 08:13 11/21/17 08:13 11/21/17 08:13 11/21/17 08:13 11/21/17 08:13 Vital Signs Reviewed: Yes Appearance: Positive: Pain Distress Skin: Positive: Warm, Dry Head/Face: Positive: Normal Head/Face Inspection Eyes: Positive: EOMI, AMALIA, Conjunctiva Inflammed, Other: - 4mm by 2mm corneal abrasion at 12 position on flourscein exam ENT: Positive: Normal ENT inspection, Pharynx normal, TMs normal Respiratory/Lung Sounds: Positive: Clear to Auscultation, Breath Sounds Present Cardiovascular: Positive: Normal, RRR Musculoskeletal: Positive: Normal Neurological: Positive: Normal Psychiatric: Positive: Normal Procedures - Eye Procedure left Alcaine Drops Administered: Yes - fluorscein uptake at 12 position 4mm by 2mm Diagnostics - Vital Signs Vital Signs Temp Pulse Resp BP Pulse Ox 11/21/17 08:13 97.4 F 89 16 167/100 99 - Laboratory Lab Statement: Any lab studies that have been ordered have been reviewed, and results considered in the medical decision making process. - CT eye CT Interpretation: No Acute Changes CT Interpretation Completed By: Radiologist EENT Course/Dx - Course Course Of Treatment: 66-year-old male presents with right abrasion and foreign body in eye. He states that he was cutting fiberglass and a piece went into the eye. He was seen at and no foreign body was seen but is corneal abrasion. He states that after left he had increasing pain. The pain is 10 out of 10. he is followed by the pain clinic. He states that he is able to see out of the eye but it is blurry and painful. The eyes were more red today. He has not followed up with optho. he has history of high blood pressure. Does not wear contacts or glasses. on exam has 4mm at 2mm uptake floruscein exam. no foreign body seen exam. CT no foreign body. got appointment with optho today. patient has pain medication at pharmacy. patient understand and agrees with plan. - Differential Diagnoses Differential Diagnoses: Conjunctivitis, Corneal Abrasion, Foreign Body - Diagnoses Provider Diagnoses: Corneal abrasion Discharge - Sign-Out/Discharge Documenting (check all that apply): Patient Departure - Discharge Plan Condition: Good Disposition: HOME Patient Education Materials: Corneal Abrasion (ED) Referrals: Remi Kidd MD [Primary Care Provider] - Franklin Gary MD [Medical Doctor] - Additional Instructions: you have appointment at 1:15 today continue antibiotic take normal pain medication Return to ED if develop any new or worsening symptoms - Billing Disposition and Condition Condition: GOOD Disposition: Home
--- NOTE | 2017-11-21 08:57 | RAD ---
HISTORY: potential foreign body COMPARISONS: None TECHNIQUE: Multiple contiguous axial CT scans were obtained of the face without intravenous contrast, with coronal and sagittal multiplanar reformations. FINDINGS: BONES: There is no displaced fracture or dislocation. The orbital rim is intact. The zygomatic arch is intact. The pterygoid plates are intact. ORBITS: The globes are round. The optic nerves are symmetric. The extraocular musculature is normal. There is no post septal or intraconal inflammatory change. There is no retrobulbar hematoma. There is no radiopaque foreign body attributable to the orbits. PARANASAL SINUSES: There is mild mucosal thickening of ethmoid air cells and left maxillary sinus.. BRAIN AND SOFT TISSUE: Unremarkable. OTHER: None. IMPRESSION: NO RADIOPAQUE FOREIGN BODY OF THE ORBITS.
[2017-11-21 09:32] VITALS: BP 149/96
== END 2017-11-21 09:32 | disposition home or self-care (01) ==
LOC: ED 08:11
DX: S05.01XA Injury of conjunctiva and corneal abrasion without foreign body, right eye, initial encounter (principal); X58.XXXA Exposure to other specified factors, initial encounter; Y93.9 Activity, unspecified; Y92.9 Unspecified place or not applicable
CPT/HCPCS: 70480; 99282; A9270-GY

== ENCOUNTER 2019-02-21 16:54 | Observation (INO) | payer MEDICARE ==
[2019-02-21] MEDS ORDERED: NS 0.9% 1000 ML** 1,000 ML IV ONE (17:11)
[2019-02-21 17:17] LABS: ABS Eosinophils 0.1 10^3/ul (0-0.6); ABS Lymphocytes 1.6 10^3/ul (1.0-4.8); ABS Monocytes 0.5 10^3/ul (0-0.8); ABS Neutrophils 4.7 10^3/ul (1.5-7.7); Eosinophil % 1.8 %; Hematocrit 39 % (42-52); Hemoglobin 13.3 g/dL (14.0-18.0); Mean Corpuscular HGB Conc 34 g/dL (31-36); Mean Corpuscular Hemoglobin 31 pg (27-31); Mean Corpuscular Volume 93 fL (80-94); Mean Platelet Volume 7.6 fL (7.4-10.4); Nucleated Red Blood Cells % 0.1; Platelet Count 196 10^3/uL (150-450); Red Blood Count 4.24 10^6 /uL (4.18-5.48); Red Cell Distribution Width 14 % (10-15)
[2019-02-21 17:22] LABS: INR 0.94 (0.82-1.09)
[2019-02-21 17:34] LABS: Albumin 4.4 g/dL (3.2-5.2); Albumin/Globulin Ratio 1.8 (1-3); BUN/Creatinine Ratio 15.6 (8-20); EGFR Non-African American 52.9 (>60); Globulin 2.4 g/dL (2-4); Potassium 3.8 mmol/L (3.5-5.0); Total Bilirubin 0.3 mg/dL (0.2-1.0); Total Protein 6.8 g/dL (6.4-8.9)
--- OUTSIDE RECORDS SUMMARY | 2019-02-21 17:57 | XMS REPORT | Continuity of Care Document ---
:1950 External Reference #:[id number] Author Name Shaw Seaman DO, MPH Address [address] [facility], [address] [place] [address] Care Team Providers Name Role Phone Remi Kidd M.D. - Family Medicine Care Team Information Implementation Consultant Problems Description No Information Available Social History Type Date Description Comments Sex Unknown Tobacco Use Start: Unknown Patient has never smoked Smoking Status Reviewed: 02/20/19 Patient has never smoked Allergies, Adverse Reactions, Alerts Description No Known Drug Allergies Medications Active Medications SIG Qnty Indications Ordering Provider Date Cialis si by mouth 20tabs 302.72 Shaw Seaman DO, 08/14/2014 10mg Tablets as needed as MPH directed Simvastatin 1 by mouth every Unknown 20mg day Tablets Omeprazole si by mouth Unknown 20mg every day as Capsules DR directed Niacinamide Unknown 500mg Tablets Immunizations Description No Information Available Vital Signs Date Vital Result Comment 02/20/2019 4:27pm BP Systolic 138 mmHg BP Diastolic 82 mmHg Heart Rate 88 /min Respiratory Rate 20 /min Height 67 inches 5'7" Weight 164.00 lb Pain Level 8 Pain at this time. Pain Level Without Medicine 9 without meds BMI (Body Mass Index) 25.7 kg/m2 10/17/2018 3:08pm BP Systolic 148 mmHg BP Diastolic 86 mmHg Heart Rate 82 /min Respiratory Rate 20 /min Height 67 inches 5'7" Weight 169.00 lb Pain Level 7 Pain at this time. Pain Level After Procedure 4 BP Systolic Recheck 158 mmHg Pulse: 88 BP Diastolic Recheck 90 mmHg Pulse: 88 BMI (Body Mass Index) 26.5 kg/m2 Results Description No Information Available Procedures Date Code Description Status 10/17/2018 99246 Injection For Nerve Block, Suprascapular Nerve Completed 10/17/2018 Injection, Single Or Mutiple Trigger Points One Or Two Completed Muscles 10/17/2018 Injection, Tendon Origin/Insertion Completed 10/17/2018 Inject Tendon/Ligament Completed Medical Devices Description No Information Available Encounters Type Date Location Provider Dx Diagnosis Office Visit 10/17/2018 Main Office as Of Shaw Seaman DO, M54.2 Cervicalgia 3:45p 05/26/13 MPH 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, cervicothoracic region M65.88 Other synovitis and tenosynovitis, other site M54.13 Radiculopathy, cervicothoracic region M79.12 Myalgia of auxiliary muscles, head and neck Assessments Date Code Description Provider 02/20/2019 M54.5 Low back pain Shaw Seaman DO, MPH 02/20/2019 M99.03 Segmental and somatic dysfunction of lumbar Shaw Seaman DO, MPH region 10/17/2018 M54.2 Cervicalgia Shaw Seaman DO, MPH 10/17/2018 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 Symptoms and complaints discussed and reviewed today.No changes in physical findings. Patient is stable and comfortable when current medical therapy is rendered.M99.03 Segmental and somatic dysfunction of lumbar regionComments: Chronic. Symptoms and complaints discussed and reviewed today. Lumbar somatic dysfunctions noted warranting OMT. Continue current medical pain management and OMT. [id number]. OMT performed after evaluation. HVLA.AllComments:Continue current medical pain management; injection therapy, osteopathic manipulation, PT / modalities, and consults as needed to manage chronic pain.Non - opioid pain management discussed and optionsdiscussed.Side effects discussed; anticipatory guidance given. Patient clearly understand and agree with all medical treatments and suggestions. All medicines prescribed are adequate and appropriate for this patient's complaint of pain, medical history, physical, and personal goals.Goals of Treatment are to provide adequate and appropriate multidisciplinary medical pain management to increase/ maintain patient's quality of life and functionality while maintaining satisfactory side effect profile andminimizing senior care end-organ damage. Importance of regular nutrition throughout the day discussed.Activity as toleratedContinue with PCP Functional Status Description No Information Available Mental Status Description No Information Available Referrals Description No Information Available
[2019-02-21 17:59] LABS: TSH (Thyroid Stimulating Horm) 1.93 mcIU/mL (0.34-5.60)
[2019-02-21] MEDS ORDERED: Aspirin 81 mg CHEW TAB* 81 MG TAB.CHEW PO ONE (18:23)
--- NOTE | 2019-02-21 18:27 | ED ---
HPI Chest Pain - HPI Summary HPI Summary: Patient is a 68 y/o M presenting to the ED for a chief complaint of intermittent chest pain. Pt is present with his girlfriend and his son. Patient states starting last Tue, he has had episodes of feeling a palpitation causing him to cough. Patient reports that he had a nonproductive cough immediately after the episodes of palpitation began. Patient describes the palpitations as fluttery and occurs with SOB and midsternal chest discomfort which resolves after a few minutes. Patient denies changes in the palpitations since initial onset, but states the frequency decreased over the last weekend. On Tuesday, while driving to [place], he had recurrent episodes and called Dr. Kidd making an appt today. Pt has continued to have sensatio several times a day - does not wake him at night. Today, patient began to feel palpitations with episodes lasting minutes before resolving. Patient denies similar symptoms in the past. Patient also admits left shoulder pain that radiates from the neck that is at baseline and patient had prior to his current symptom onset. Patient denies diaphoresis, dizziness, nausea, abdominal pain, calf pain, calf swelling , CP with exertion, or SOB on exertion. No back pain. Pt say Dr. Kidd today - neg trop. Dr. Kidd called Dr. Higgins who recommended that the patient be seen at [facility]. Patient last had a cardiac stress test in 2013. Patient admits drinking 3 cups of coffee a day, but no recent changes in his caffeine intake. Patient denies any other long distance travel, exposure to fumes, or positive sick contact. Pt does drink 1 drink daily. no ilicit substance. no new or differet over the counter medication. Pt does intermittenty use Aftrin. Pt with h/o htn, elevate chol. Patient was previously admitted to [facility] for a TIA with aphasia in the past that resolved. Allergies noted. Patients medications reviewed this visit. 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 - History of Current Complaint Chief Complaint: EDChestPainROMI Time Seen by Provider: 02/21/19 17:10 Hx Obtained From: Patient, Family/Roving Marker Onset/Duration: Started Days Ago, Atraumatic, Still Present Timing: Intermittent, Lasting Seconds Initial Severity: Mild Current Severity: Mild Pain Intensity: 0 Pain Scale Used: 0-10 Numeric Chest Pain Location: Mid Sternal Chest Pain Radiates: No Character: Other: - "fluttery" Aggravating Factor(s): Nothing Alleviating Factor(s): Nothing Associated Signs and Symptoms: Positive: Chest Pain - Midsternal chest discomfort, Shortness of Breath, Palpitations, Cough, Nonproductive Cough. Negative: Dizziness, Swelling - Calf, Diaphoresis, Abdominal Pain, Calf Pain/ Swelling, Edema - Calf - Additional Pertinent History Primary Care Physician: Dr. Kidd - Allergy/Home Medications Allergies/Adverse Reactions: Allergies Allergy/AdvReac Type Severity Reaction Status Date / Time No Known Allergies Allergy Verified 11/20/17 17:53 Home Medications: Home Medications Allopurinol TAB* [Zyloprim 100 MG TAB*] 100 mg PO DAILY 02/21/19 [History Confirmed 02/21/19] Eszopiclone (NF) [Lunesta (NF)] 3 mg PO BEDTIME 02/21/19 [History Confirmed ] Omeprazole (Nf) [Prilosec (NF)] 40 mg PO DAILY 02/21/19 [History Confirmed 02/21] Polyethylene Glycol 3350* [Miralax*] 17 gm PO DAILY 02/21/19 [History Confirmed 02/21/19] Sildenafil Citrate [Viagra] 50 - 100 mg PO DAILY PRN 02/21/19 [History Confirmed 02/21/19] Simvastatin (NF) [Zocor (NF)] 40 mg PO DAILY 02/21/19 [History Confirmed ] ValACYclovir (*) [Valtrex 500 mg (*)] 500 mg PO DAILY 02/21/19 [History Confirmed 02/21/19] PMH/Surg Hx/FS Hx/Imm Hx Previously Healthy: Yes Endocrine/Hematology History: Denies: Hx Anticoagulant Therapy, Hx Diabetes, Hx Thyroid Disease, Other Endocrine/Hematological Disorders - Hx blood clots Cardiovascular History: Reports: Hx Hypercholesterolemia, Hx Hypertension, Other Cardiovascular Problems/Disorders - Hx CKD Denies: Hx Pacemaker/ICD Respiratory History: Denies: Hx Asthma, Hx Chronic Obstructive Pulmonary Disease (COPD) GI History: Reports: Hx Gastroesophageal Reflux Disease Denies: Hx Ulcer History: Reports: Hx Chronic Renal Failure - CKD II Denies: Hx Dialysis, Hx Renal Disease - POSSIBLE STAGE 2 KIDNEY DISEASE Musculoskeletal History: Reports: Hx Gout Sensory History: Reports: Hx Contacts or Glasses Denies: Hx Hearing Aid Opthamlomology History: Reports: Hx Contacts or Glasses Neurological History: Reports: Hx Transient Ischemic Attacks (TIA) Psychiatric History: Reports: Hx Panic Disorder - situational- during his divorce - Surgical History Surgery Procedure, Year, and Place: Rt leg reconstruction(PIN PLACED THEN REMOVED CHILD) ;Lt ACL repair 20 years ago, vasectomy 17 years ago Hx Anesthesia Reactions: No Infectious Disease History: No Infectious Disease History: Denies: Hx Clostridium Difficile, Hx Hepatitis, Hx Human Immunodeficiency Virus (HIV), History Other Infectious Disease, Traveled Outside the [place] in Last 30 Days - Family History Known Family History: Positive: Renal Disease, Non-Contributory Negative: Cardiac Disease, Hypertension, Diabetes - Social History Occupation: Employed Full-time Lives: With Family Alcohol Use: Daily Alcohol Amount: 2 shots of whiskey daily Hx Substance Use: No Substance Use Type: Reports: None Hx Tobacco Use: No Smoking Status (MU): Never Smoked Tobacco Type: Cigars Review of Systems Negative: Skin Diaphoresis Positive: Palpitations - Intermittent, lasting minutes, describred as "flutter" , Chest Pain - Midsternal discomfort, associated with palpitations and SOB Positive: Shortness Of Breath - Associated with palpitations and CP, not on exertion, Cough - Nonproductive associated with SOB, CP, and palpitations, not on exertion, Other Negative: Abdominal Pain Positive: Myalgia - Left shoulder from left neck at baseline; negative calf pain. Negative: Edema - Calf Neurological: Other - Negative dizziness All Other Systems Reviewed And Are Negative: Yes Physical Exam - Summary Physical Exam Summary: Vital Signs Reviewed: Yes A+Ox3, no distress Eyes: Conjunctiva Clear, AMALIA. EOM intact and full ENT: Hearing grossly normal TM x 2 clear, mmoist, uvula midline, no exudate, no erythema Neck: Positive: Supple Respiratory: Positive: No respiratory distress, No accessory muscle use + CTA throughout no w/r, no edema, no bruits b/l Cardiovascular: RRR nl s1, s2 no m/r CBT <2 sec abd soft + BS nt/nd no guarding, no distension Musculoskeletal Exam: DOAN x 4 without difficulty Strength Intact, ROM Intact Neurological: Positive: Alert, + sensation throughout Psychological: Positive: Normal Response To certified orthotist practice manager Skin: Positive: no rash, no ecchymosis Triage Information Reviewed: Yes Vital Signs On Initial Exam: Initial Vitals Temp Pulse Resp BP Pulse Ox 98.6 F 85 16 153/93 98 02/21/19 17:09 02/21/19 17:09 02/21/19 17:09 02/21/19 17:09 02/21/19 17:09 Vital Signs Reviewed: Yes Procedures - Sedation Patient Received Moderate/Deep Sedation with Procedure: No Diagnostics - Vital Signs Vital Signs Temp Pulse Resp BP Pulse Ox 02/21/19 17:25 80 02/21/19 17:09 98.6 F 85 16 153/93 98 - Laboratory Lab Results: Lab Results 02/21/19 02/21/19 02/21/19 Range/Units 17:07 17:07 17:07 WBC 7.0 (3.5-10.8) 10^3/uL RBC 4.24 (4.18-5.48) 10^6 /uL Hgb 13.3 L (14.0-18.0) g/dL Hct 39 L (42-52) % MCV 93 (80-94) fL MCH 31 (27-31) pg MCHC 34 (31-36) g/dL RDW 14 (10-15) % Plt Count 196 (150-450) 10^3/uL MPV 7.6 (7.4-10.4) fL Neut % (Auto) 67.9 % Lymph % (Auto) 23.0 % [place] % (Auto) 6.8 % Eos % (Auto) 1.8 % Baso % (Auto) 0.5 % Absolute Neuts (auto) 4.7 (1.5-7.7) 10^3/ul Absolute Lymphs (auto) 1.6 (1.0-4.8) 10^3/ul Absolute Monos (auto) 0.5 (0-0.8) 10^3/ul Absolute Eos (auto) 0.1 (0-0.6) 10^3/ul Absolute Basos (auto) 0.0 (0-0.2) 10^3/ul Absolute Nucleated RBC 0.0 10^3/ul Nucleated RBC % 0.1 INR (Anticoag Therapy) 0.94 (0.82-1.09) Sodium 142 (135-145) mmol/L Potassium 3.8 (3.5-5.0) mmol/L Chloride 108 (101-111) mmol/L Carbon Dioxide 28 (22-32) mmol/L Anion Gap 6 (2-11) mmol/L BUN 21 (6-24) mg/dL Creatinine 1.35 H (0.67-1.17) mg/dL Est GFR ( Amer) 64.0 (>60) Est GFR (Non-Af Amer) 52.9 (>60) BUN/Creatinine Ratio 15.6 (8-20) Glucose 111 H (70-100) mg/dL Calcium 9.0 (8.6-10.3) mg/dL Total Bilirubin 0.30 (0.2-1.0) mg/dL AST 17 (13-39) U/L ALT 25 (7-52) U/L Alkaline Phosphatase 60 (34-104) U/L Troponin I 0.00 (<0.04) ng/mL Total Protein 6.8 (6.4-8.9) g/dL Albumin 4.4 (3.2-5.2) g/dL Globulin 2.4 (2-4) g/dL Albumin/Globulin Ratio 1.8 (1-3) TSH 1.93 (0.34-5.60) mcIU/mL Result Diagrams: 19 17:07 02/21/19 17:07 Lab Statement: Any lab studies that have been ordered have been reviewed, and results considered in the medical decision making process. - Radiology 16:59 Radiology Interpretation Completed By: Radiologist Summary of Radiographic Findings: EKG at 16:59 reveals 84 BPM with normal sinus rhythm, no STEMI. Reviewed and interpreted by ED physician. Chest X-ray Radiology Interpretation Completed By: ED Physician, Radiologist Summary of Radiographic Findings: Chest X-ray IMPRESSION: no acute process. Reviewed and interpreted by ED physician, pending official radiology report. - EKG 16:59 Cardiac Rate: NL - 84 BPM EKG Rhythm: Sinus Rhythm ST Segment: Normal Ectopy: None Summary of EKG Findings: EKG at 16:59 reveals 84 BPM with normal sinus rhythm, no STEMI. Reviewed and interpreted by ED physician. Re-Evaluation - Re-Evaluation First Re-Evaluation Time: 18:45 Change: Unchanged Comment: Reviewed labs with pt and family. Pt in agreement for obv. While I was in the room - pt noted to cough -states felt it - printed strip - in chart - appear to be PAC - will review with hosp. anticipate serial trop and stress tomorrow. At 18:45, I spoke with that patients son, Jose, an anesthesiologist , and updated son about patients case. questions asked and answer - noted agreement and comfort with plan Chest Pain Course/Dx - Course Course Of Treatment: Pt presents to ED from PCP office. pt with brief episodes of feeling a fluttering in his chest that cause him to cough Firest noted last tue. HAs had several episodes since. no lightheaded, diaphoresis, nausea. No new meds + home stress pt went to PCP today and was sent to ED per cardiology request. VSS. no focal findings on exam - pt on tele. will check labs including electrolytes, mag, tsh. EKG non concerning. continue monitor. anticipate obv. will give ASA. pt comfortable and in agreement with plan. elevated BP - history of same - Diagnoses Provider Diagnoses: Palpitations - Provider Notifications Discussed Care Of Patient With: Terri Krishnamurthy Time Discussed With Above Provider: 18:25 - At 18:25, Dr. Terri Krishnamurthy agrees to admit the patient with a diagnosis of palpitations. Instructed by Provider To: Admit As Inpatient Discharge ED - Sign-Out/Discharge Documenting (check all that apply): Patient Departure - Admit All imaging exams completed and their final reports reviewed: No - Discharge Plan Condition: Stable Disposition: ADMITTED TO [facility] - Billing Disposition and Condition Condition: STABLE Disposition: Admitted to [facility] - Attestation Statements Document Initiated by Scribe: Yes Documenting Scribe: Caryn Hernandez Provider For Whom Sara is Documenting (Include Credential): Radha Riley MD Scribe Attestation: Caryn Mars, scribed for Radha Riley MD on 02/22/19 at 1821. Scribe Documentation Reviewed: Yes Provider Attestation: The documentation as recorded by the Caryn carolina accurately reflects the service I personally performed and the decisions made by me, Radha Riley MD Status of Scribe Document: Viewed
[2019-02-21] MEDS ORDERED: ALPRAZolam TAB* 0.25 MG PO PRN (19:13)
[2019-02-21] MEDS ORDERED: Ondansetron INJ* 2 MG/ML VIAL IV PRN (19:15)
[2019-02-21 19:22] LABS: Magnesium 1.9 mg/dL (1.9-2.7)
[2019-02-21] MEDS ORDERED: Enoxaparin(*) 40 MG/0.4 ML SYR SUBCUT SCH (20:00)
[2019-02-21 20:02] LABS: Urine Appearance Clear; Urine Bilirubin Negative (Negative); Urine Blood Negative (Negative); Urine Color Amber; Urine Glucose Negative (Negative); Urine Ketones Negative (Negative); Urine Nitrite Negative (Negative); Urine Protein Negative (Negative); Urine Specific Gravity 1.005 (1.010-1.030); Urine Urobilinogen Negative (Negative)
[2019-02-21] MEDS ORDERED: Zolpidem TAB* 5 MG PO PRN (21:37)
--- NOTE | 2019-02-21 21:39 | HP ---
ADMISSION HISTORY AND PHYSICAL: DATE OF ADMISSION: 02/21/19. PRIMARY CARE PHYSICIAN: Dr. Kidd. PROVIDER: Elizabeth Mnacera NP. ATTENDING PHYSICIAN: Dr. Krishnamurthy.* (DICTATED BY ELIZABETH MANCERA NP) CHIEF COMPLAINT: Chest pain and palpitations. HISTORY OF PRESENT ILLNESS: This is a 68-year-old male with a past medical history significant for TIA, hyperlipidemia and hypertension, who started having chest pain and palpitations last week for about 3 days continuously and then over the weekend, he had just a few episodes each day and a few times today. They seem to happen at any time of the day. Nothing seem to trigger it , it could happen while he was at rest or during driving. He describes the sensation as a fluttering in his chest with accompanied pressure and a cough. He also reported left shoulder pain starting a few weeks ago that is constant and it aches from the side of his neck to shoulder with occasional pins and needles. Denies any diaphoresis or shortness of breath. He had seen his primary care physician today who recommended he come to the emergency room. In the emergency room, he received 162 mg of aspirin and a liter of fluid bolus. Labs were drawn. Chest x-ray was done. Trop so far had been negative. Chest x -ray is negative for any significant findings. Hospitalists were asked to evaluate the patient for admission. PAST MEDICAL HISTORY: TIA, hyperlipidemia, hypertension, GERD, chronic kidney disease stage 2, and gout. PAST SURGICAL HISTORY: Left ACL repair. MEDICATIONS: 1. Simvastatin 40 mg p.o. daily. 2. Sildenafil citrate 50 to 100 mg p.o. daily p.r.n. 3. Allopurinol 100 mg daily. 4. Omeprazole 40 mg p.o. daily. 5. Nisoldipine 8.5 mg p.o. daily. 6. Alprazolam 0.25 mg p.o. daily p.r.n. 7. Polyethylene glycol 17 g p.o. daily. 8. Lunesta 3 mg p.o. at bedtime. 9. Valacyclovir 500 mg p.o. daily. 10. Mometasone 500 mcg in both nares daily. FAMILY HISTORY: Significant for his father had a quadruple bypass, hypertension and renal failure. Mother had Alzheimer's. SOCIAL HISTORY: He smokes a cigar once a month during the summertime. Drinks about 2 shots of [place] 4 times a week. Denies any recreational drug use. 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 REVIEW OF SYSTEMS: An 11-point system review was performed. It was positive for chest pain, fluttering with pressure, left shoulder pain, and occasional numbness and tingling to the arms. Negative for shortness of breath, diaphoresis, abdominal pain, nausea, vomiting, issues with bowel or bladder. PHYSICAL EXAMINATION GENERAL: This is a well-developed gentleman seen sitting up in bed, in no acute distress. VITAL SIGNS: Temperature 98.6 Fahrenheit, 85 pulse, 16 resps, 98% oxygen on room air, and 153/93 blood pressure. HEENT: Eyes: Conjunctivae are pink and moist. PERRLA. EOMs intact. ENT: Oropharynx clear. Mucous membranes moist. NECK: Supple. LUNGS: Lungs sound clear throughout bilaterally on room air. 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 No murmurs, gallops or rubs appreciated. ABDOMEN: Soft, nontender, and nondistended with positive bowel sounds x4. MUSCULOSKELETAL: No clubbing or cyanosis of digits. 5/5 strength to bilateral upper and lower extremities. NEUROLOGIC: Sensation intact to light touch. No focal deficits appreciated. PSYCH: Alert and oriented x3. Thought content organized. SKIN: No open areas or rashes appreciated. PERTINENT LAB DATA/ DIAGNOSTIC STUDIES: Hemoglobin 13.3, hematocrit 39. Creatinine 1.39, glucose 111, troponin 0, B-natriuretic peptide is 37. EKG showed sinus rhythm and chest x-ray no notable pathology. ASSESSMENT AND PLAN: My impression is that this is a 68-year-old patient with a past medical history of transient ischemic attack, hypertension, and hyperlipidemia who was admitted on 02/21/19 for chest pain likely due to PACs, though we will obtain stress test in the a.m. 1. Chest pain. I do not feel this to be a STEMI or N-STEMI due to lack of EKG changes. Symptoms are most likely attributed to PACs due to what was seen by Dr. Riley in the ED, who witnessed the PACs on the monitor as the patient was coughing and stating he was having a fluttering in his chest. Dr. Kidd had spoken to Dr. Higgins prior to the patient coming to the emergency room and Dr. Higgins had recommended a stress test as per Dr. Riley. We will keep the patient n.p.o. after midnight for an exercise stress test in the a.m. We will do serial trops x3 total since the first was 0.0. The patient to have no caffeine or beta blockers until after stress test and telemetry monitoring in place. DENIA score of 2. 2. Hypertension. Blood pressures currently in the 150s, consistently elevated. Can continue the nisoldipine. 3. Hyperlipidemia. May continue the simvastatin. Lipid panel drawn in November 2018 showed all normal levels. 4. Gastroesophageal reflux disease. No current reports of indigestion. May continue omeprazole. 5. Gout. No current flare-up, but may continue allopurinol. 6. Anxiety. May continue alprazolam as needed. 7. DVT prophylaxis. SCDs and Lovenox. 8. Code status. Full code. TIME SPENT: Time spent on this patient was about 60 minutes with more than half of it spent [id number]. Case was reviewed my by attending and they agree with plan of care. ELIZABETH MANCERA,GRISELDA [id number]/[facility] #: [id number] MIQUEL
[2019-02-21] MEDS: NS 0.9% 1000 ML** 1,000 ML IV SCH (23:49)
[2019-02-22] MEDS ORDERED: NISOLDIPINE 8.5 MG PO SCH (09:00)
[2019-02-22] MEDS ORDERED: Atorvastatin* 20 MG TAB PO SCH (09:00)
[2019-02-22] MEDS ORDERED: Polyethylene Glycol 3350* 17 GM PACKET PO SCH (09:00)
[2019-02-22] MEDS ORDERED: Allopurinol TAB* 100 MG PO SCH (09:00)
[2019-02-22] MEDS ORDERED: Pantoprazole TAB * 40 MG TAB PO SCH (09:00)
[2019-02-22] MEDS ORDERED: Fluticasone NASAL SPRAY 50MCG* 16 gm SPRAY BTL BOTH NARES SCH (09:00)
[2019-02-22] MEDS: NS 0.9% 1000 ML** 1,000 ML IV SCH (12:00)
[2019-02-22 13:59] VITALS: BP 136/88
--- NOTE | 2019-02-22 23:49 | DS ---
CC: Dr. Morales; Dr. Kidd * DISCHARGE SUMMARY: DATE OF ADMISSION: 02/21/19 DATE OF DISCHARGE: 02/22/19 PRIMARY CARE PROVIDER: Dr. Kidd DISPOSITION AT DISCHARGE: To home. CONDITION ON DISCHARGE: Stable. DISCHARGE DIAGNOSES: Episodes of heart skipping beat and palpitations related likely to the symptomatic premature ventricular contractions. SECONDARY DIAGNOSES: 1. History of transient ischemic attack. 2. Hyperlipidemia. 3. Hypertension. 4. Gastroesophageal reflux disease. 5. Chronic kidney disease stage 2. 6. Gout. MEDICATIONS AT DISCHARGE: Unchanged from admission and include: 1. Valacyclovir on a p.r.n. basis. 2. Zocor 40 mg daily. 3. Viagra on a p.r.n. basis. 4. MiraLAX 17 grams daily. 5. Prilosec 40 mg daily. 6. Sular 8.5 mg daily. 7. Nasonex nasal spray 1 spray both nostrils daily. 8. Lunesta 3 mg at bedtime. 9. Xanax 0.25 mg b.i.d. 10. Allopurinol 100 mg daily. 11. Mag ox 400 mg daily for a total of 7 days. LABORATORY DATA AND STUDIES PERFORMED DURING HOSPITAL STAY: Include: Troponin throughout the patient's hospital stay was 0. The patient's magnesium was 1.9. The patient's cardiac test is documented on 02/22/[address] Morales that was an exercise stress echocardiogram showed "normal maximal exercise stress echocardiogram. Flynn treadmill score of 9, which is low risk. 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 It could last seconds and would resolve spontaneously. It would occur at various times but not stimulated by exercise. The patient did not complain of chest pain per se. After 3 weeks of having intermittent symptoms, he went to see Dr. Kidd, who sent him to the ED for evaluation. Here the patient was placed on overnight observation on telemetry monitored bed and at night and today in the morning, the patient had no PVCs noted, although he had PVCs in the emergency room as per report. His troponins continued to be negative and EKG was pretty unremarkable. The patient underwent stress echocardiogram. In recovery, he had PVCs and symptoms were reproduced when it happened. At this point, likely has symptomatic PVCs. We talked at length about possibility of treating the patient's symptomatic PVCs with institution of beta-igor or modifying his lifestyle with limiting caffeine use and behavioral modifications: with trying to relax, exercise, and sleep better. We discussed it at length and obviously it is difficult "to relax"do for a person who has stressful job as Mr. Smallwood, but he would prefer to try to modify his lifestyle before using any further pharmacologic approach. At this point, Mr. Smallowod is going to be discharged home. Recommendation to follow up with Dr. Kidd in 4 to 7 days. His medications are going to be unchanged from admission. Please note that the patient's magnesium was at the lower limit of normal and I am going to prescribe him a week's worth of magnesium supplementation. [id number]/[facility] #: [id number] MIQUEL
== END 2019-02-22 18:05 | disposition home or self-care (01) ==
LOC: ED 16:54 → MEDTELE 19:15
PROVIDERS: ADMIT Hospitalist; ATTEND Internal Medicine
DX: R00.2 Palpitations (principal); R07.9 Chest pain, unspecified; I12.9 Hypertensive chronic kidney disease with stage 1 through stage 4 chronic kidney disease, or unspecified chronic kidney disease; E78.00 Pure hypercholesterolemia, unspecified; K21.9 Gastro-esophageal reflux disease without esophagitis; Z79.899 Other long term (current) drug therapy; Z86.73 Personal history of transient ischemic attack (TIA), and cerebral infarction without residual deficits; E78.5 Hyperlipidemia, unspecified; N18.2 Chronic kidney disease, stage 2 (mild); M10.9 Gout, unspecified
CPT/HCPCS: 36415; 71045; 80053; 81003; 83735; 83880; 84443; 84484; 85025; 85610; 93005; 93351; 96360; 96361; 99284; A9270-GY; G0378; J1650